=== PATIENT | male | born 2000 | race Caucasian/White ===

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

== ENCOUNTER 2020-06-20 21:15 | Emergency (ER) | payer OTHER ==
[2020-06-20] MEDS ORDERED: IBUPROFEN 600 MG TABLET (FP) PO ONE ×2 (21:43→21:47)
[2020-06-20] MEDS ORDERED: CEPHALEXIN MONOHYDRATE 500 MG CAPSULE (UD) PO ONE (21:43)
[2020-06-20 21:47] VITALS: BP 154/78; PULSE 90; TEMP 98.3; BMI 24.3
[2020-06-20] MEDS ORDERED: CEPHALEXIN MONOHYDRATE 500 MG CAPSULE (UD) ONE (21:47)
== END 2020-06-20 22:01 | disposition home or self-care (01) ==
LOC: FER 21:15
PROC: 0HQJXZZ Repair Left Upper Leg Skin, External Approach (ICD-10-PCS; principal; 2020-06-20)
DX: S71.012A Laceration without foreign body, left hip, initial encounter (principal)
CPT/HCPCS: 99283-25

== ENCOUNTER 2020-12-08 19:43 | Emergency (ER) | payer OTHER ==
[2020-12-08 20:06] VITALS: TEMP 98.1; BMI 27.2
[2020-12-08] MEDS ORDERED: SODIUM CHLORIDE 1,000 ML IV STA (21:35)
[2020-12-08] MEDS ORDERED: ACETAMINOPHEN 1000 MG/100 ML VIAL (NON FORMULARY) IVPB ONE (21:35)
[2020-12-08] MEDS ORDERED: FAMOTIDINE 20 MG/50 ML IVPB 20 MG/50 ML MG IVPB ONE (22:04)
[2020-12-08 22:05] LABS: BASO % 0.2 % (0-2.0); HEMATOCRIT 43.5 % (35.4-49); HEMOGLOBIN 14.3 GM/dL (11.7-16.9); LYMPH % 24.2 % (8-40); MCHC 32.9 g/dl (32.0-35.9); MEAN PLT VOLUME 9.3 fl (7.5-11.1); MONO % 6.8 % (3.8-10.2); NEUT % 67.8 % (42.8-82.8); PLATELET COUNT 176 10^3/uL (134-434); RBC 5.11 M/mm3 (4.00-5.60); RDW 13.4 % (11.9-15.9); WHITE BLOOD COUNT 7.1 K/mm3 (4.0-10.0)
[2020-12-08] MEDS ORDERED: ACETAMINOPHEN INJECTION 100 ML IVPB ONE (22:15)
[2020-12-08 23:21] LABS: CHLORIDE 107 mmol/L (98-107); SODIUM 140 mmol/L (136-145)
[2020-12-08 23:23] LABS: CALCIUM 8.8 mg/dL (8.5-10.1)
[2020-12-08 23:24] LABS: ALBUMIN 4.2 g/dl (3.4-5.0); ANION GAP 8 MMOL/L (8-16); BLOOD UREA NITROGEN 14.8 mg/dL (7-18); CO2 25 mmol/L (21-32); GLUCOSE,RANDOM 82 mg/dL (74-106)
[2020-12-08 23:27] LABS: CREATININE 0.9 mg/dL (0.55-1.3); SGOT/AST 23 U/L (15-37); SGPT/ALT 31 U/L (13-61)
[2020-12-08 23:28] LABS: BILIRUBIN,TOTAL 0.4 mg/dL (0.2-1)
[2020-12-08 23:29] LABS: TOT PROT 7.4 g/dl (6.4-8.2)
[2020-12-08 23:30] LABS: ALK PHOS 80 U/L (45-117)
[2020-12-09 00:19] VITALS: BP 120/65; PULSE 60
== END 2020-12-09 00:18 | disposition home or self-care (01) ==
LOC: JER 19:43
PROC: 3E0333Z Introduction of Anti-inflammatory into Peripheral Vein, Percutaneous Approach (ICD-10-PCS; principal; 2020-12-08)
PROC: 3E033GC Introduction of Other Therapeutic Substance into Peripheral Vein, Percutaneous Approach (ICD-10-PCS; 2020-12-08)
PROC: 3E0337Z Introduction of Electrolytic and Water Balance Substance into Peripheral Vein, Percutaneous Approach (ICD-10-PCS; 2020-12-08)
DX: R07.89 Other chest pain (principal)
CPT/HCPCS: 36415; 71046-TC-FY; 80053; 82550; 82553; 84484; 85025; 93005; 93010; 99285-25; J0131

== ENCOUNTER 2021-04-18 17:22 | Emergency (ER) | payer OTHER ==
[2021-04-18 17:44] VITALS: BP 107/78; PULSE 90; TEMP 97; BMI 27.6
[2021-04-18] MEDS ORDERED: KETOROLAC TROMETHAMINE 60 MG/2 ML VIAL IM ONE (20:42)
[2021-04-18] MEDS ORDERED: LIDOCAINE 5% TOPICAL PATCH TP ONE (20:42)
[2021-04-18] MEDS ORDERED: ACETAMINOPHEN 325 MG TABLET (FP) PO ONE (20:42)
[2021-04-18] MEDS ORDERED: METHOCARBAMOL 750 MG TAB PO ONE (20:44)
[2021-04-18] MEDS ORDERED: LIDOCAINE 5% TOPICAL PATCH ONE (20:50)
[2021-04-18] MEDS ORDERED: KETOROLAC TROMETHAMINE 30 MG/1 ML VIAL ONE (20:50)
[2021-04-18] MEDS ORDERED: METHOCARBAMOL 500 MG TABLET ONE (20:50)
[2021-04-18] MEDS ORDERED: ACETAMINOPHEN 500 MG TABLET (FP) ONE (20:51)
[2021-04-18] MEDS ORDERED: LIDOCAINE PATCH REMOVAL MC SCH (22:00)
== END 2021-04-18 22:33 | disposition home or self-care (01) ==
LOC: JER 17:22 → JERFT 17:22
PROC: 3E0233Z Introduction of Anti-inflammatory into Muscle, Percutaneous Approach (ICD-10-PCS; principal; 2021-04-18)
DX: M54.50 Low back pain, unspecified (principal); V49.40XA Driver injured in collision with unspecified motor vehicles in traffic accident, initial encounter
CPT/HCPCS: 72040-TC; 72100-TC-FY; 99284-25